=== PATIENT | male | born 1990 | race Caucasian/White ===

== ENCOUNTER 2019-04-14 06:10 | Emergency (ER) | payer OTHER ==
[2019-04-14] MEDS ORDERED: Adacel (T-DAP) 0.5 ML SYRINGE ONE (06:24)
--- NOTE | 2019-04-14 07:41 | RAD ---
3 views right fourth finger: 04/14/2019 COMPARISON: None HISTORY: Partial amputation, injury FINDINGS: There is an obliquely oriented comminuted open fracture involving the distal aspect of the fourth middle phalanx with marked comminution, displacement, and intra-articular extension. There is a prominent associated laceration in this region consistent with partial amputation. No additional fracture is seen. IMPRESSION: Partial amputation at the level of the distal aspect fourth middle phalanx with associate d comminuted intra-articular displaced fracture.
== END 2019-04-14 08:13 | disposition short-term general hospital (02) ==
LOC: NAV ERS 06:10
DX: S68.124A Partial traumatic metacarpophalangeal amputation of right ring finger, initial encounter (principal); W23.0XXA Caught, crushed, jammed, or pinched between moving objects, initial encounter
CPT/HCPCS: 90471; 90715; 99001